=== PATIENT | male | born 1940 | race African-American/Black ===

== ENCOUNTER 2025-09-27 12:17 | Inpatient (IN) | payer MEDICARE, MEDICAID ==
[~2025-09-27] VITALS: Ht 185.4 cm; Wt 87.0 kg
[~2025-09-27 12:17] MED LIST: ASPI-1450 PO; CHOL400T56 PO; LISI-892 PO; METF-1211 PO
[2025-09-27] MEDS: SODIUM CHLORIDE 0.9% 1,000 ML IV ONE ×2 (12:47→14:24)
[2025-09-27 13:07] LABS: PLATELET COUNT (AUTO) 221 K/uL (150-450); RED BLOOD CELL COUNT(AUTO) 4.35 MIL/uL (4.50-5.90); RED CELL DISTRIBUTION WIDTH 14.3 % (11.5-14.5); WHITE BLOOD COUNT (AUTO) 6.0 K/uL (4.5-11.0)
[2025-09-27 13:13] LABS: CALCIUM, TOTAL 8.1 mg/dL (8.8-10.5); CREATININE 1.54 mg/dL (0.60-1.30); GLOMERULAR FILTR. RATE CALC 52 mL/min (>60); GLUCOSE,RANDOM 150 mg/dL (70-110); SODIUM SERUM 145 mmol/L (136-145); UREA NITROGEN, BLOOD 12 mg/dL (7-18)
[2025-09-27 13:23] LABS: TROPONIN I-HIGH SENSITIVITY 11 ng/L (<76)
[2025-09-27 13:30] LABS: LACTIC ACID 5.9 mmol/L (0.4-2.0)
[2025-09-27] MEDS ORDERED: 0.9% SODIUM CHLORIDE 10 ML SYRINGE IVP PRN (13:45)
[2025-09-27] MEDS: CefTRIAXone 1 GM/DEXTROSE 50 ML IV ONE (14:24)
[2025-09-27 14:52] LABS: ASPARTATE AMINOTRANSFERASE 85 U/L (15-37); TOTAL PROTEIN, SERUM 8.2 g/dL (6.4-8.2)
[2025-09-27 15:00] LABS: INFLUENZA TYPE A NEGATIVE FOR TYPE A (NEGATIVE); INFLUENZA TYPE B NEGATIVE FOR TYPE B (NEGATIVE)
[2025-09-27 15:26] LABS: COVID AG,FIA SOURCE NASAL SWAB
[2025-09-27 15:52] LABS: TROPONIN I-HIGH SENSITIVITY 13 ng/L (<76)
[2025-09-27] MEDS ORDERED: DEXTROSE 50%-WATER 25 GM/50 ML SYRINGE IVP PRN (16:15)
[2025-09-27] MEDS ORDERED: ACETAMINOPHEN 325 MG TABLET PO PRN (16:15)
[2025-09-27] MEDS ORDERED: INSULIN LISPRO 100 UNITS/ML SQ PRN (16:15)
[2025-09-27] MEDS ORDERED: MAGNESIUM HYDROXIDE SUSPENSION 30 ML UDCUP PO PRN (16:15)
[2025-09-27 16:26] LABS: APPEARANCE,URINE CLEAR (CLEAR); GLUCOSE, URINE (UA) NEGATIVE (NEGATIVE); LEUKOCYTE ESTERASE ,URINE NEGATIVE (NEGATIVE); NITRATE,URINE NEGATIVE (NEGATIVE); OCCULT BLOOD,URINE NEGATIVE (NEGATIVE); SPECIFIC GRAVITIY, URINE 1.011 (1.003-1.030)
[2025-09-27 16:28] LABS: SQUAMOUS EPITHELIAL CELL,UR Rare /LPF (None Seen)
[2025-09-27 17:13] LABS: SARS-COV2 (COVID) ANTIGEN,FIA Negative (Negative)
[2025-09-27 18:05] VITALS: BP 161/75; PULSE 75; RESP 18; TEMP 97.9; O2SAT 98
[2025-09-27] MEDS: 1: MAGNESIUM SULFATE 2 GM, MVI, ADULT NO.1 WITH VIT K 10 ML, THIAMINE 100 MG, FOLIC ACID IV SCH (18:28)
[2025-09-27 19:15] LABS: GLUCOMETER DEV NAME(LOC) 5N.1D; GLUCOSE,POINT OF CARE 108 MG/DL (70-110)
[2025-09-27 20:02] VITALS: BP 148/83; PULSE 93; RESP 17; TEMP 97.6; O2SAT 98
[2025-09-27] MEDS: DOCUSATE SODIUM 100 MG CAPSULE PO SCH (20:41)
[2025-09-27 23:51] VITALS: BP 140/77; PULSE 111; RESP 18; TEMP 98.6; O2SAT 97
[2025-09-28] MEDS: HEPARIN SODIUM,PORCINE 5,000 UNITS/ML VIAL SQ SCH
[2025-09-28 03:55] VITALS: BP 145/70; PULSE 69; RESP 18; TEMP 97.7; O2SAT 97
[2025-09-28] MEDS ORDERED: SODIUM CHLORIDE 0.9% 1,000 ML ONE (05:23)
[2025-09-28 06:16] LABS: GLUCOMETER DEV NAME(LOC) 5S.1E; GLUCOSE,POINT OF CARE 114 MG/DL (70-110)
[2025-09-28 06:16] LABS: GLUCOMETER DEV NAME(LOC) 5S.1E; GLUCOSE,POINT OF CARE 90 MG/DL (70-110)
[2025-09-28 06:33] LABS: PLATELET COUNT (AUTO) 194 K/uL (150-450); RED BLOOD CELL COUNT(AUTO) 3.99 MIL/uL (4.50-5.90); RED CELL DISTRIBUTION WIDTH 13.9 % (11.5-14.5); WHITE BLOOD COUNT (AUTO) 7.7 K/uL (4.5-11.0)
[2025-09-28 07:48] LABS: CALCIUM, TOTAL 7.8 mg/dL (8.8-10.5); CREATININE 1.24 mg/dL (0.60-1.30); GLOMERULAR FILTR. RATE CALC > 60 mL/min (>60); GLUCOSE,RANDOM 85 mg/dL (70-110); SODIUM SERUM 143 mmol/L (136-145); UREA NITROGEN, BLOOD 17 mg/dL (7-18)
[2025-09-28 08:24] VITALS: BP 138/78; PULSE 68; RESP 19; TEMP 97.2; O2SAT 99
[2025-09-28] MEDS: ASPIRIN 81 MG CHEWABLE TABLET PO SCH (09:08)
[2025-09-28] MEDS: FAMOTIDINE 20 MG TABLET PO SCH (09:09)
[2025-09-28] MEDS: ATORVASTATIN CALCIUM 20 MG TABLET PO SCH (09:09)
[2025-09-28 12:02] VITALS: BP 151/84; PULSE 74; RESP 16; TEMP 97.5; O2SAT 99
[2025-09-28 16:02] VITALS: BP 125/73; PULSE 67; RESP 18; TEMP 98.2; O2SAT 99
[2025-09-28] MEDS ORDERED: RELU120T PO (18:50)
[2025-09-28 19:39] VITALS: BP 121/65; PULSE 71; RESP 19; TEMP 98.1; O2SAT 98
[2025-09-28 22:20] LABS: GLUCOMETER DEV NAME(LOC) 5N.1D; GLUCOSE,POINT OF CARE 111 MG/DL (70-110)
[2025-09-29 00:21] VITALS: BP 150/84; PULSE 68; RESP 17; TEMP 97.5; O2SAT 96
[2025-09-29 03:55] VITALS: BP_SYST 147; BP_DIAS 75; BP_DIAS 77; PULSE 61; PULSE 68; RESP 17; TEMP 98.1; TEMP 98.2; O2SAT 98
[2025-09-29 06:46] LABS: GLUCOMETER DEV NAME(LOC) 5S.1E; GLUCOSE,POINT OF CARE 99 MG/DL (70-110)
[2025-09-29 08:18] VITALS: BP 133/94; PULSE 77; RESP 18; TEMP 98; O2SAT 100
[2025-09-29 11:33] VITALS: BP 134/70; PULSE 60; RESP 18; TEMP 98.1; O2SAT 99
[2025-09-29 11:50] LABS: GLUCOMETER DEV NAME(LOC) 5N.1D; GLUCOSE,POINT OF CARE 106 MG/DL (70-110)
== END 2025-09-29 12:45 | disposition home or self-care (01) | DRG 65 ==
LOC: EMS 12:36 → EDH 16:07 → 5S 17:38
PROVIDERS: ADMIT Internal Medicine; ATTEND Internal Medicine
DX: I63.81 Other cerebral infarction due to occlusion or stenosis of small artery (principal); N17.9 Acute kidney failure, unspecified; C61 Malignant neoplasm of prostate; F10.10 Alcohol abuse, uncomplicated; I12.9 Hypertensive chronic kidney disease with stage 1 through stage 4 chronic kidney disease, or unspecified chronic kidney disease; E11.22 Type 2 diabetes mellitus with diabetic chronic kidney disease; N28.9 Disorder of kidney and ureter, unspecified; R55 Syncope and collapse; Z20.822 Contact with and (suspected) exposure to COVID-19; Y90.9 Presence of alcohol in blood, level not specified; I95.9 Hypotension, unspecified; Z86.73 Personal history of transient ischemic attack (TIA), and cerebral infarction without residual deficits; Z83.3 Family history of diabetes mellitus
CPT/HCPCS: 70450; 71045; 80048; 80076; 81001; 82962; 83605; 83690; 83880; 84145; 84484; 85025; 85610; 87040; 87804; 93005; 93306; 96361; 96365; 97116; 97162; 99285; J0696; J1644; J3411; J3475; J3490; J7030; 36415-L1; 36415-TC